=== PATIENT | male | born 2000 | race Two or more races ===

== ENCOUNTER 2019-09-16 03:39 | Emergency (ER) | payer SELFPAY ==
[~2019-09-16] VITALS: Ht 182.9 cm; Wt 79.8 kg
--- NOTE | 2019-09-16 03:53 | Emergency Room Report ---
History of Present Illness General Chief Complaint: Laceration Source: Patient Present Illness HPI Disclaimer: Please note that this report is being documented using DRAGON technology. This can lead to erroneous entry secondary to incorrect interpretation by the dictating instrument. HPI: 18-year-old otherwise healthy male presents for evaluation of a forearm laceration. The patient is right-hand dominant. He slipped going down the stairs and accidentally knocked over a decorative vase causing a cut over the lateral aspect of his right forearm. States was unintentional and denies any SI /HI. Tetanus is up-to-date. He notes minor pain but bleeding was controlled by applying pressure. He called EMS to bring him to the emergency department for treatment. Vital signs were stable en route. No other complaints or injuries noted. There is no head injury, no loss of consciousness. PMH: Denies PSH: Denies Allergies: Denies Social Hx: Denies drug or alcohol abuse Allergies: Coded Allergies: No Known Allergies (Unverified , 09/16/19) Nursing Documentation-PMH Past Medical History: No Stated History Review of Systems All Other Systems: negative except mentioned in HPI Physical Exam Vital Signs Date Time Temp Pulse Resp B/P (MAP) Pulse Ox O2 Delivery O2 Flow Rate FiO2 09/16/19 03:37 98.1 101 18 114/73 (87) 98 Room Air General: Awake and alert, no acute distress HEENT: NC/AT. EOMI. Resp: Normal work of breathing Skin: There is a 5 cm V-shaped laceration over the ulnar aspect in the mid forearm. Bleeding is controlled. Extends through the subcutaneous tissue but does not invade the muscle. No visible debris. MSK: Normal tone and bulk. Moving all extremities. No obvious deformity. Able to flex and extend all digits of the hands. Able to flex and extend the wrists , elbows. Able to pronate and supinate. Neuro: Awake and alert. Mentating appropriately. Sensation intact over the upper extremity's bilaterally. Procedures Laceration/Wound Repair Laceration/Wound Repair : Consent: Verbal Wound Location: upper extremity Wound's Depth, Shape: into muscle, linear Wound Explored: clean Betadine Prep?: Yes Anesthesia: Lidocaine w/ Epi Volume Anesthetic (ccs): 10 Wound Repaired With: sutures Suture Size/Type: 3:0, proline Number of Sutures: 11 Layer Closure?: Yes Deep Layer Suture Size/Type: 4:0 Number Deep Layer Sutures: 4 Sterile Dressing Applied?: Yes Patient Tolerated: Well Complications: None Medical Decision Making Diagnostic Impression: Primary Impression: Laceration ER Course 18-year-old male presents for evaluation of forearm laceration. Maintains that this was accidental and not attempted self-harm. X-ray was obtained which shows small retained radiopaque foreign bodies in the soft tissue. The patient underwent irrigation with tap water for approximately 10 minutes and a thorough cleanout including Betadine. Tetanus is up-to-date. After irrigation the wound was closed with 4 deep layer sutures of 4-0 Vicryl which will not require removal but he will require removal of the 11 simple interrupted 3-0 Prolene sutures for superficial closure. The wound was approximated well without complication. Patient tolerated the procedure well. He is able to flex and extend all digits as well as the wrist though he still has some pain over the l ulnar aspect of his arm with wrist movements. The patient will be discharged for outpatient follow-up. He can return to the emergency department for suture removal if there is no other option. We also discussed signs and symptoms of infection and reasons to return to the emergency department. He understands and agrees with this treatment plan will be discharged home. Other X-Ray Diagnostic Results Other X-Ray Diagnostic Results : X-Ray ordered: Right forearm # of Views/Limited Vs Complete: 2 View Indication: Other - Injury EP Interpretation: Yes Interpretation: no fractures, other - Small radiopaque foreign bodies noted in forearm Impression: Other - Radiopaque foreign bodies and soft tissue injury Electronically Signed by: Electronically signed by Dr. Geoffrey Haywood Last Vital Signs Date Time Temp Pulse Resp B/P (MAP) Pulse Ox O2 Delivery O2 Flow Rate FiO2 09/16/19 03:37 98.1 101 18 114/73 (87) 98 Room Air Disposition: HOME, SELF-CARE Condition: Improved Geoffrey Haywood MD Sep 16, 2019 03:53
[2019-09-16 03:59] VITALS: BP 114/73
[2019-09-16] MEDS ORDERED: Lidocaine 1% 10mg/ml/Epi 0.005mg/ml 10ml vial INJ ONE (04:00)
--- NOTE | 2019-09-16 04:02 | NUR ---
ER Nurse Note: Pt brought in by ambulance 829 from home c/o RT forearm laceration. Pt stated he tripped down the stairs, landed on a glass and punctured Rt forearm. Arm bleeding, approximated edges. Tendon showing. ERMD at bedside. Pt stated he is up to date of TDAP shot. Arm irrigated. Will continue to montior.
--- NOTE | 2019-09-16 05:16 | NUR ---
ER Nurse Note: Wound cleaned with normal saline; wound continue to bleed. Lidocane taken from pyxis and given to ERMD; ERMD provided stiches. All orders completed per ERMD orders. ERMD at pt side. Pt stable, RA, no signs of distress. All safety measures met; will continue to montior.
--- NOTE | 2019-09-16 05:45 | Diagnostic Imaging Report ---
Indications: Right arm pain, laceration Technique: Two views of the right forearm Comparison: None Findings: Gas lucencies are seen in the soft tissues of the right midforearm adjacent to the ulna is . Multiple irregular dense radiopacities are noted in the same area, likely representing foreign bodies. The bones appear intact. Impression: Evidence of laceration with multiple small foreign bodies the mid forearm. This agrees with the preliminary interpretation provided overnight by [facility]. .
[2019-09-16 05:50] VITALS: BP 122/76
--- NOTE | 2019-09-16 05:50 | NUR ---
ER Nurse Note: Pt seen, treated, medically cleared for discharge by ERMD. Discharge instuctions given with repeat verbalization by pt. Emphasized to follow up with primay care provider. All orders completed per ERMD orders. Pt a&ox4, VSS, no signs of distress. ID band removed. All questions answered per pt's questions. Instructed pt to either follow up with primary provider or ER for stiches removal in 10 -14 days. Pt wound dressed, clean, dry and intact. Extra supplies provided for wound care. Pt left with all belongings, left with own transportation.
--- NOTE | 2019-09-16 06:18 | NUR ---
Note undone in EDM - 09/16/19 at 0621 by [email or web address] ER Nurse Note: Pt seen, treated, medically cleared for discharge by ERMD. Discharge instuctions given with repeat verbalization by pt. Emphasized to follow up with primay care provider. All orders completed per ERMD orders. Pt a&ox4, VSS, no signs of distress. ID band removed. All questions answered per pt's questions. Instructed pt to either follow up with primary provider or ER for stiches removal in 10 -14 days. Pt wound dressed, clean, dry and intact. Extra supplies provided for wound care. Pt left with all belongings, left with own transportation.
[2019-09-16] MEDS ORDERED: CEPHALEXIN500 MG ORAL (06:23)
== END 2019-09-16 05:50 | disposition home or self-care (01) ==
LOC: EDBD 03:39 → EMR 03:57
DX: S51.821A Laceration with foreign body of right forearm, initial encounter (principal); W01.118A Fall on same level from slipping, tripping and stumbling with subsequent striking against other sharp object, initial encounter; Y92.008 Other place in unspecified non-institutional (private) residence as the place of occurrence of the external cause
CPT/HCPCS: 99283